=== PATIENT | female | born 1945 | race Two or more races ===

== ENCOUNTER 2019-10-03 07:00 | Day surgery (SDC) | payer OTHER ==
[~2019-10-03 07:00] MED LIST: CYMBALTA60 MG PO; ZOCOR20 MG PO
== END 2019-10-03 17:10 | disposition home or self-care (01) ==
LOC: CIR.AMB 07:00
DX: M51.26 Other intervertebral disc displacement, lumbar region (principal); M99.73 Connective tissue and disc stenosis of intervertebral foramina of lumbar region